=== PATIENT | female | born 1980 ===

== ENCOUNTER → 2022-11-13 13:30 | Outpatient (BNVA) | payer MEDICAID, SELFPAY | PROVIDERS: Visit Provider Physician Assistant | DX: M47.816 Spondylosis without myelopathy or radiculopathy, lumbar region (principal); M54.6 Pain in thoracic spine; M47.812 Spondylosis without myelopathy or radiculopathy, cervical region; M54.9 Dorsalgia, unspecified | CPT/HCPCS: 72050; 72070; 72110 ==

== ENCOUNTER 2022-11-13 15:39 | Outpatient (CLI) | payer MEDICAID, SELFPAY | END 2022-11-13 15:40 | disposition home or self-care (01) | LOC: SPT 15:40 | PROVIDERS: Visit Provider Physician Assistant | DX: Z46.89 Encounter for fitting and adjustment of other specified devices (principal); G56.02 Carpal tunnel syndrome, left upper limb | CPT/HCPCS: 97760; L3908 ==

== ENCOUNTER 2022-12-05 06:00 | Outpatient (RCR) | payer MEDICAID, SELFPAY | END 2022-12-16 23:59 | disposition home or self-care (01) | LOC: GPT 06:00 | PROVIDERS: Visit Provider Physician Assistant | DX: M54.50 Low back pain, unspecified (principal); G89.29 Other chronic pain | CPT/HCPCS: 97110; 97163; 97530 ==

== ENCOUNTER 2022-12-17 06:00 | Outpatient (RCR) | payer MEDICAID, SELFPAY | END 2023-01-16 23:59 | disposition home or self-care (01) | LOC: GPT 06:00 | PROVIDERS: Visit Provider Physician Assistant | DX: M54.50 Low back pain, unspecified (principal); G89.29 Other chronic pain | CPT/HCPCS: 97110; 97112; 97140; 97530 ==

== ENCOUNTER 2023-01-17 01:00 | Outpatient (RCR) | payer MEDICAID, SELFPAY | END 2023-02-15 23:59 | disposition home or self-care (01) | LOC: GPT 01:00 | PROVIDERS: Visit Provider Physician Assistant | DX: M54.50 Low back pain, unspecified (principal); G89.29 Other chronic pain | CPT/HCPCS: 97110; 97112; 97140 ==

== ENCOUNTER 2023-02-16 06:00 | Outpatient (RCR) | payer MEDICAID, SELFPAY | END 2023-03-18 23:59 | disposition home or self-care (01) | LOC: GPT 06:00 | PROVIDERS: Visit Provider Physician Assistant | DX: M54.50 Low back pain, unspecified (principal); G89.29 Other chronic pain | CPT/HCPCS: 97110; 97112; 97140; 97164; 97530 ==

== ENCOUNTER 2023-03-19 06:00 | Outpatient (RCR) | payer MEDICAID, SELFPAY | END 2023-04-17 23:59 | disposition home or self-care (01) | LOC: GPT 06:00 | PROVIDERS: Visit Provider Physician Assistant | DX: M54.50 Low back pain, unspecified (principal); G89.29 Other chronic pain | CPT/HCPCS: 97110; 97140; 97164 ==

== ENCOUNTER 2023-04-18 06:00 | Outpatient (RCR) | payer MEDICAID, SELFPAY | END 2023-05-18 23:59 | disposition home or self-care (01) | LOC: GPT 06:00 | PROVIDERS: Visit Provider Physician Assistant | DX: M54.50 Low back pain, unspecified (principal); G89.29 Other chronic pain | CPT/HCPCS: 97110; 97112; 97140 ==